=== PATIENT | male | born 1975 | race Caucasian/White ===

== ENCOUNTER 2017-04-24 16:39 | Emergency (ER) | payer SELFPAY ==
--- NOTE | 2017-04-24 17:36 | ERNOTE ---
ER Male HPI Date of Service: 04/24/17 Stated Complaint: TESTICLE SWELLING ER Male: testicular pain Time Seen by Provider: 04/24/17 17:00 Source: patient Exam Limitations: no limitations Immunizations: IMMUNIZATION HX Immunizations Up to Date Yes History of Influenza Vaccine No Hx Pneumococcal Vaccination No Allergies/Adverse Reactions: Allergies No Known Allergies Allergy (Verified 04/24/17 16:53) Home Medications: HOME MEDICATIONS Aspirin [Aspir-Low] 81 mg PO DAILY 04/24/17 [Last Taken Unknown] Ciprofloxacin HCl [Cipro] 500 mg PO BID #42 tab 04/24/17 [Last Taken Unknown] oxyCODONE HCL/ACETAMINOPHEN [Percocet 5 MG/325 MG] 1 tab PO TID PRN #30 tab [Last Taken Unknown] - History of Present Illness Narrative: patient states tht he has had right testicular pain x 2 days. states that pain cam osbaldo sudden and had continued to get worse. Date (Duration): 04/24/17 Timing: Present: constant, getting worse Quality: Present: severe, throbbing Onset Location: Present: scrotal Radiation: Present: scrotal Prior Abdominal Problems: Present: none Sexual [place] History: Present: less than 2 months ago, same sex partner Associated Symptoms: Absent: nausea, vomiting, abdominal pain, loss of bladder control, low back pain Review of Systems - Narrative Narrative: patient present with scrotal pain x 2 days. Patient states that his right testicle is extremely painful and he feels like it is out of place. - Review of Systems Constitutional: Present: See HPI EYE: Present: no symptoms reported ENT: Present: no symptoms reported Respiratory: Present: no symptoms reported Cardiology: Present: no symptoms reported Gastrointestinal/Abdominal: Present: no symptoms reported Genitourinary: Present: See HPI Musculoskeletal: Present: no symptoms reported Skin: Present: no symptoms reported Neurological: Present: no symptoms reported Endocrine: Present: no symptoms reported Hematologic/Lymphatic: Present: no symptoms reported Psych: Present: no symptoms reported All Other Systems: All systems neg except as marked - Patient's Past Medical History Patient History - Cardiac/Respiratory: No pertinent hx Patient History - Cancer: No Hx of Cancer Patient History - Surgical Procedures: No surgical history Patient History - Other: None - Social History Living Situations: home Psych History: No pertinent hx Have you smoked in the past 12 months: Yes - Immunizations Immunizations Up to Date: Yes Hx Pneumococcal Vaccination: No History of Influenza Vaccine: No Physical Exam - Physical Exam Narrative: patient has a cremasteric reflex on the left side but no cremasteric reflex on the right side observed. patient did not get pain relief with elevation of testicles. General Appearance: Present: wd/wn, alert, no apparent distress Head Exam: Present: normal inspection Eye Exam: Normal inspection: bilateral, PERRL: bilateral, EOMI: bilateral Ears, Nose, Throat: Present: normal ENT inspection, normal pharynx Neck: Present: normal inspection, nontender Respiratory: Present: no respiratory distress, normal breath sounds, no accessory muscle use, chest nontender, lungs clear Cardiovascular/Chest: Present: regular rate, rhythm, no murmur, normal peripheral pulses Gastrointestinal/Abdominal: Present: normal bowel sounds, nontender, nondistended, soft, no organomegaly Male Genitals Exam: Present: no hernia, epididymal tenderness, scrotum tenderness (R), testicular tenderness (R). Absent: inguinal tenderness, lesions , urethral discharge Back Exam: Present: normal inspection, normal range of motion, no CVA tenderness , no vertebral tenderness Extremity Exam: Present: normal inspection, non-tender, normal range of motion, no edema Neurological Exam: Present: alert, oriented, normal mood/affect, no motor/ sensory deficits ED Progress - Vital Signs Patient's Vital Signs:: I have reviewed the patient's vital signs. Vital Signs: Vital Signs 04/24/17 16:44 Temperature 36.9 C Pulse Rate 105 H Respiratory 16 Rate Blood Pressure 167/92 - CT/Ultrasound CT/Ultrasound Narrative: HISTORY: right testicle pain for two days BILATERAL SCROTAL ULTRASOUND. COMPARISON: None Technique: Grayscale images were obtained in the right and left scrotum. The testicles were evaluated using color-flow and Doppler technique. Findings: Right side: The right testicle measures 4.7 x 4.5 x 2.4 cm. There is mild heterogenicity to the right testicular parenchyma without a definable focal lesion. Arterial and venous flow is identified within the right testicle using color-flow and Doppler technique. The epididymal head measures 1 cm. The umbilicus appears within normal limits and I'm not convinced of significant swelling. I do not see evidence for a definable hydrocele. Left side: The left testicle measures 4.3 x 3.9 x 2.2 cm. The left testicle is homogeneous in appearance I'm not convinced of definable lesion or heterogenicity. Arterial and venous flow is identified in the left testicle using color-flow and Doppler technique. The epididymal head measures up to 1.4 cm. There is a 2.2 cm anechoic structure in the epididymal head suggesting an epididymal cyst. The epididymis is not enlarged. I do not see evidence for hydrocele. IMPRESSION: 1. MILD HETEROGENICITY WITHIN THE RIGHT TESTICULAR PARENCHYMA, WHICH IS NONSPECIFIC AND MAY BE CHRONIC. SUBTLE EARLY ORCHITIS CANNOT BE TOTALLY EXCLUDED. CLINICAL CORRELATION REQUIRED. 2. UNREMARKABLE ULTRASOUND OF THE LEFT TESTICLE. 3. NO EVIDENCE FOR TORSION ON THIS EXAMINATION. CLINICAL CORRELATION IS REQUIRED TO EXCLUDE INTERMITTENT TORSION. 4. 2 2 MM EPIDIDYMAL CYST WITHIN THE LEFT EPIDIDYMAL HEAD. 5. NO EVIDENCE FOR HYDROCELE. Electronically signed by Jani Ludwig M.D.. Jani Ludwig MD - Progress/Reassessment Chief Complaint: Genitourinary Problem Plan - Plan Plan: This provider spoke with on-call urologist. He feels the patient has epididymitis related to his lab work and clinical presentation. Patient is to be started on antibiotics per Dr. eNal and he will follow-up with him on Sunday in the office. Departure Clinical Impression: Epididymitis - Departure Disposition: Home Follow Up Needed Condition: Stable Instructions: Epididymitis Additional Instructions: Continue previous medications as prescribed. Take antibiotics as directed. Take pain medication as needed for pain. Call Dr. Ferrell's office in the morning and make an appointment for Sunday. Return to the emergency room if pain continues or new symptoms appear. Referrals: Hira Neal MD [Associate] - Prescriptions: Ciprofloxacin HCl [Cipro] 500 mg PO BID #42 tab oxyCODONE HCL/ACETAMINOPHEN [Percocet 5 MG/325 MG] 1 tab PO TID PRN #30 tab PRN Reason: Pain
[2017-04-24 19:10] LABS: Urine Bilirubin Negative (NEGATIVE); Urine Blood Negative /ul (NEGATIVE); Urine Ketone Negative (NEGATIVE); Urine Nitrite Negative (NEGATIVE); Urine Protein 30 mg/dL (NEGATIVE); Urine Specific Gravity 1.025 SP.GR. (1.005-1.030); Urine Urobilinogen Normal (NORMAL)
[2017-04-24] MEDS ORDERED: KETOROLAC TROMETHAMINE 60 MG/2 ML VIAL IM ONE ×2 (19:14→19:20)
[2017-04-24] MEDS ORDERED: oxyCODONE HCL/ACETAMINOPHEN 1 TAB TABLET PO ONE (19:14)
[2017-04-24] MEDS ORDERED: CIPROFLOXACIN HCL 250 MG TABLET PO ONE (19:15)
[2017-04-24 19:20] LABS: Urine Appearance Clear; Urine Color Yellow
[2017-04-24] MEDS ORDERED: CIPROFLOXACIN HCL 250 MG TABLET ONE (19:20)
[2017-04-24] MEDS ORDERED: oxyCODONE HCL/ACETAMINOPHEN 1 TAB TABLET ONE (19:20)
[2017-04-24 19:21] LABS: Urine Bacteria 1+; Urine Mucus Few - 1+; Urine RBC None Seen /hpf (0-5); Urine WBC None Seen /hpf (0-5)
[2017-04-24 19:30] VITALS: BP 151/88
== END 2017-04-24 19:30 | disposition home or self-care (01) ==
LOC: ER 16:39
DX: N45.1 Epididymitis (principal)